=== PATIENT | female | born 1945 | race Caucasian/White ===

== ENCOUNTER 2016-08-25 07:49 | Outpatient (CLI) | payer MEDICARE, OTHER ==
[2016-08-25 09:59] LABS: #Eosinphils 0.2 thou/uL (0.0-0.7); #Lymphocytes 1.3 thou/uL (1.20-3.40); #Monocytes 0.7 thou/uL (0.11-0.59); #Neutrophils 5.6 thou/uL (1.40-6.50); %Basophils 0.5 % (0.0-1.0); %Lymphocytes 17.1 % (21.0-51.0); Hematocrit 38.5 % (36.0-47.0); Mean Platelet Volume 7.2 fL (7.4-10.4); Red Blood Cell (RBC) Count 4.45 mill/uL (4.20-5.40); White Blood Cell (WBC) Count 7.9 thou/uL (4.8-10.8)
[2016-08-25 10:01] LABS: ALT (SGPT) 20 U/L (0-55); AST (SGOT) 21 U/L (5-34); Alkaline Phosphatase 154 U/L (40-150); Anion Gap 16 mmol/L (10-20); BUN (Urea Nitrogen) 21 mg/dL (9.8-20.1); Bilirubin, Total 0.9 mg/dL (0.2-1.2); Calc. Creatinine Clearance 0 mL/min (70-130); Calcium 9.3 mg/dL (7.8-10.44); Carbon Dioxide 27 mmol/L (23-31); Chloride 103 mmol/L (98-107); Estimated GFR-MDRD 54; LDL Cholesterol, Calculated 122 mg/dL
[2016-08-25 10:41] LABS: Hemoglobin A1c 6.2 % (4.0-6.0)
== END 2016-08-25 07:50 | disposition home or self-care (01) ==
LOC: NAV LAB 07:49
PROVIDERS: ATTEND Obstetrics & Gynecology
DX: Z13.220 Encounter for screening for lipoid disorders (principal); Z13.1 Encounter for screening for diabetes mellitus; Z13.6 Encounter for screening for cardiovascular disorders; Z01.419 Encounter for gynecological examination (general) (routine) without abnormal findings; Z13.820 Encounter for screening for osteoporosis; F41.9 Anxiety disorder, unspecified; I10 Essential (primary) hypertension; N95.1 Menopausal and female climacteric states; R73.01 Impaired fasting glucose
CPT/HCPCS: 36415; 80053; 80061; 83036; 84443; 85025

== ENCOUNTER 2021-06-10 10:21 | Emergency (ER) | payer MEDICARE, OTHER ==
[2021-06-10] MEDS ORDERED: Boostrix 0.5 ML (Tdap) VIAL ONE (10:40)
[2021-06-10] MEDS ORDERED: Lidocaine 1% (PF) 30 ML VIAL ONE ×2 (10:40→11:16)
[2021-06-10] MEDS ORDERED: Bacitracin 1 PK ONE (10:49)
== END 2021-06-10 11:15 | disposition home or self-care (01) ==
LOC: NAV ERS 10:21
DX: S61.312A Laceration without foreign body of right middle finger with damage to nail, initial encounter (principal); W26.0XXA Contact with knife, initial encounter; I10 Essential (primary) hypertension; I48.91 Unspecified atrial fibrillation; Z79.01 Long term (current) use of anticoagulants
CPT/HCPCS: 12001; 90471; 90715; J2001

== ENCOUNTER 2024-05-16 09:18 | Emergency (ER) | payer MEDICARE | END 2024-05-16 10:07 | disposition home or self-care (01) | LOC: NAV ERS 09:18 | DX: T16.2XXA Foreign body in left ear, initial encounter (principal); H65.93 Unspecified nonsuppurative otitis media, bilateral; I10 Essential (primary) hypertension | CPT/HCPCS: 69200; 99282 ==